=== PATIENT | male | born 1960 | race Caucasian/White ===

== ENCOUNTER → 2016-07-18 | Outpatient (CLI) | payer OTHER, MEDICARE ==
[~2016-07-18] MED LIST: DIAZ5TAB4 PO; HYDR-2762 PO; IOHEXOL 180 MG/ML 10 ML VIAL. ONE; MELO15TA23 PO; methylPREDNISolone ACETATE 40 MG/ML VIAL. ONE; methylPREDNISolone ACETATE 80 MG/ML VIAL. ONE
--- NOTE | 2016-07-19 07:11 | PAIN ---
DATE OF SERVICE: 07/18/2016 INITIAL CONSULTATION CHIEF COMPLAINT: Neck and bilateral upper extremity pain. HISTORY OF PRESENT ILLNESS: This is a 56-year-old male who presents with history of pain for about 10 years, worse over the past 6 months to a year. The patient reports it is increased with activity, lifting items, using his upper back or shoulder, sitting for prolonged periods, driving a car. The patient reports it is constant, shooting, radiating, numbness and tingling in the bilateral shoulders and upper extremities with numbness in the left hand, more noticeable than the right. The patient reports no specific injury or accident that he is aware of. He states it has gradually gotten worse. He does have a history of some arthritis. The patient has difficulty with it awakening him from sleep at night, he has to reposition and change positions. It does not affect his bowel or bladder control, but it does affect his ability to walk, as he has some low back pain as well and he is using a cane mostly in his right hand, but he only uses it when absolutely necessary, does not have with him today. The patient reports he has had no other physical therapies at this time, no formal treatments. He did have some chiropractic work in the past, which was not successful. The patient reports that he had some epidural injections in 2006, which helped significantly in both his neck and his low back. The patient has been taking Meloxicam as well as hydrocodone, both of which helped, but only by about 50% at the most with the hydrocodone and about 10% with the Meloxicam. The patient reports no loss of motor function but significant fatigability especially with repetitive use of the upper extremities, especially when driving. The patient reports his disability rating from 0-10, 10 being the worst, as a 7 with family and home responsibilities and recreation, 5 with sexual behavior and 0 with self-care and life support activities. The patient did have MRI scan of the lumbar spine, showing multiple levels of disk degeneration with the greatest at the L5-S1 with broad-based disk bulging extending into the right neural foramen contributing to moderately severe right foraminal stenosis. PAST MEDICAL HISTORY: Significant for arthritis, coronary artery disease, cigarette smoking, lung cancer in 2012. PAST SURGICAL HISTORY: Previous surgeries include appendectomy and lobectomy in 2012 as well. CURRENT MEDICATIONS: Include diazepam, hydrocodone, and Meloxicam. ALLERGIES: THE PATIENT IS ALLERGIC TO LYRICA. FAMILY HISTORY: Significant for heart disease and rheumatoid arthritis. SOCIAL HISTORY: The patient does not drink. He smokes one pack of cigarettes a day for 43 years. He is and lives with his spouse and one grandchild, lives locally in [place], [place]. REVIEW OF SYSTEMS: The patient's review of systems is positive for those items mentioned in the history of present illness. All systems reviewed and otherwise negative. It is complete, full and well documented on the patient's chart. PHYSICAL EXAMINATION: VITAL SIGNS: Today, the patient's blood pressure is 124/77, pulse 76, respirations 16, temperature is 98.2 degrees Fahrenheit, height is 5 feet 10 inches, weight is 151 pounds. GENERAL: The patient is awake, alert, oriented, appropriate, very pleasant demeanor. HEENT: Shows normocephalic and atraumatic. Extraocular movements are intact and symmetrical. Oral cavity shows mucous membranes are moist and pink. Dentition is intact. NECK: Shows anterior throat supple without palpable lymphadenopathy noted. Swallow reflex is symmetrical. CHEST: Shows normal on inspection. Breath sounds are clear to auscultation bilaterally. HEART: Shows S1 and S2 clear. ABDOMEN: Soft, nontender, nondistended. No palpable organomegaly. No rebound or guarding demonstrated. BACK: Shows spine grossly in the midline. Normal-appearing thoracic kyphosis and lumbar lordotic curvature. No previous bruises, lesions, rashes or scars are noted. Lumbar paraspinous musculature shows some moderate tenderness to palpation throughout the upper, middle and lower distribution, but has normal muscle girth. No tenderness over the sacrum, sacroiliac regions or over the spinous processes. The patient's lumbar spine shows good rotational motion both laterally as well as extension and flexion. Neck shows normal-appearing cervical lordotic curvature and shows good rotational motion both laterally greater than 45 degrees as well as extension greater than 10 degrees, forward flexion at 45 degrees with good rotation laterally past 45 degrees right and left with some minor pain reported with far left lateral rotation, but only in the base of the neck. Musculature is symmetrical and firm, but without specific atrophy or hypertrophy and without any radiation. EXTREMITIES: Upper extremities show deep tendon reflexes at 2+ in the biceps and triceps tendons. Motor exam is strong with factory expert strength rated at 5/5 as is biceps and triceps flexion. Peripheral pulses are 1+ in the radial distribution bilaterally. No peripheral edema is noted. No clubbing. No cyanosis. Upper extremities are warm and dry to touch, equal in color and appearance. Lower extremities showed deep tendon reflexes 1+ in the patellar and tendo calcaneus tendons. Motor exam is 5/5 with dorsiflexion, extension, quadriceps and hamstring flexion and symmetrical. IMPRESSION: 1. This is a 56-year-old male with long history of both upper back and shoulder and neck pain as well as low back pain. 2. MRI scan of the lumbar spine as noted. 3. Cigarette smoking. 4. Arthritis. 5. History of colon cancer. PLAN: Options were discussed with the patient including conservative medical management, physical therapy, interventional technique. He would like to pursue with interventional techniques. We discussed the cervical epidural steroid injection using description as well as anatomical models to describe the procedure. Risks were then discussed including but not limited to bleeding, infection, possibility of epidural hematoma and subsequent neurological compromise, dural puncture, headaches, spinal cord and/or nerve damage, side effects of steroid medication and poor results regarding pain control. The patient understands and wished to proceed. The patient will return to the clinic in approximately 2 weeks for followup. He was counseled on his return appointment, activity level and side effects to be aware of. DIAGNOSIS: Cervical radiculopathy with cervical degenerative disk disease and cervical spondylosis. PROCEDURE: Cervical epidural steroid injection using C-arm fluoroscopic guidance under sterile prep and drape using local anesthetic. MEDICATIONS INJECTED: Depo-Medrol 120 mg plus 5 mL of preservative-free normal saline and 2 mL of Isovue for contrast. CONDITION AT DISCHARGE: Stable. The patient tolerated the procedure well, had no complications. CONCHIS BAY MD DR: ASHOK/domiinc JOB#: [id number] / [id number] VALENTINO Dey MD
== END | disposition home or self-care (01) ==
LOC: PNCL 08:32
PROVIDERS: ATTEND Anesthesiology
DX: M50.10 Cervical disc disorder with radiculopathy, unspecified cervical region (principal); M47.22 Other spondylosis with radiculopathy, cervical region; M19.90 Unspecified osteoarthritis, unspecified site; F17.210 Nicotine dependence, cigarettes, uncomplicated; I25.10 Atherosclerotic heart disease of native coronary artery without angina pectoris; Z85.038 Personal history of other malignant neoplasm of large intestine; Z85.118 Personal history of other malignant neoplasm of bronchus and lung; Z88.8 Allergy status to other drugs, medicaments and biological substances
CPT/HCPCS: 62321; J1030; J1040

== ENCOUNTER → 2016-08-01 | Outpatient (CLI) | payer OTHER, MEDICARE ==
--- NOTE | 2016-08-02 05:00 | PAIN ---
DATE OF SERVICE: 08/01/2016 DIAGNOSES: 1. Lumbar radiculopathy with lumbar degenerative disk disease. 2. Cervical radiculopathy with cervical degenerative disk disease and cervical spondylosis. HISTORY OF PRESENT ILLNESS: The patient is a 56-year-old male who returns for followup status post cervical epidural steroid injection x 1 with about 75% improvement. The patient reports he is doing much better with his neck and shoulders. He is still with occasional headache, but very minimal. The patient reports pain is really not bothering him much at all. His main complaint is low back and right lower extremity pain. He has some significant radicular pain in the right lower extremity in the low back, right posterior gluteus, posterior lateral thigh, lateral anterior thigh, posterior and lateral lower leg to the ankle. The patient reports it is aching, tight, shooting, burning, unbearable at times, severe at times, worse with standing, walking, changing positions. The patient reports it is an 8 on a scale of 10 at its worst and a 4 on a scale of 10 at least, averages about a 6 on a scale of 10 most days and that is what it is today. The patient reports no new motor or sensory deficits, no new bowel or bladder incontinence or other complaints, but still significant pain in the low back and right leg. The patient did have MRI scan of the lumbar spine on 06/06/2016, showing multiple levels of disk degeneration greatest at L5-S1, broad-based posterior disk bulging extending into the right neural foraminal, contributing to moderately severe right foraminal stenosis as well as disk bulging into both neural foramina at L4-L5 as well. The patient reports no other changes. No other problems. PHYSICAL EXAMINATION: VITAL SIGNS: Today, the patient's blood pressure is 138/74, pulse 70, respirations 18, temperature 97.9 degrees Fahrenheit. Height is 5 feet 10 inches, weight is 156 pounds. GENERAL: The patient is awake, alert, oriented, appropriate, very pleasant demeanor. HEENT: Shows normocephalic and atraumatic. Extraocular movements are intact and symmetrical. Oral cavity shows mucous membranes are moist and pink. Dentition is intact. NECK: Shows anterior throat supple without palpable lymphadenopathy noted. Swallow reflex is symmetrical. CHEST: Shows normal on inspection. Breath sounds are clear to auscultation bilaterally. HEART: Shows S1 and S2 clear. ABDOMEN: Soft, nontender, nondistended. No palpable organomegaly is noted. No rebound or guarding demonstrated. BACK: The patient's back shows spine grossly in the midline. Cervical paraspinous musculature shows very minimal tenderness with palpation and good rotational motion past 45 degrees, right and left lateral, also full extension and full forward flexion without pain reported. Lower back shows some moderate tenderness with palpation in the lower lumbar distribution, more on the right than the left, but appears symmetrical. No atrophy or hypertrophy. No radiation of pain. The patient shows good rotational motion both laterally as well as extension and flexion without difficulty. EXTREMITIES: Lower extremities showed deep tendon reflexes 1+ in the patellar and tendo calcaneus tendons. Motor exam is strong with 5/5 dorsiflexion, extension, quadriceps and hamstring flexion. Upper extremities showed deep tendon reflexes 2+ in the biceps and triceps tendons. Motor exam is strong with assistant designer strength, biceps and triceps flexion is 5/5. PLAN: Options were discussed with the patient and the patient's old chart was reviewed as his current medication regimen and updated. Current review of systems updated today as well. We will preauthorize the patient for a lumbar epidural steroid injection as he has some significant radicular pain across the low back after good response to his cervical injection. His back is his main complaint now. Again, radicular pain in the right lower extremity with MRI scan as noted with broad-based posterior disk bulging at L4-L5 as well as L5-S1 with moderately severe right foraminal narrowing on the L5-S1 level. The patient was given Medrol Dosepak with instructions and side effects to be aware of. We will have him try this first and wait for preauthorization and proceed with a lumbar epidural steroid injection once that is obtained. CONCHIS BAY MD DR: ASHOK/dominic JOB#: [id number] / [id number]
== END | disposition home or self-care (01) ==
LOC: PNCL 10:03
PROVIDERS: ATTEND Anesthesiology
DX: M51.16 Intervertebral disc disorders with radiculopathy, lumbar region (principal); M50.10 Cervical disc disorder with radiculopathy, unspecified cervical region; M47.892 Other spondylosis, cervical region
CPT/HCPCS: 99212; J1030; J1040

== ENCOUNTER → 2016-08-15 | Outpatient (CLI) | payer MEDICARE, OTHER | END | disposition home or self-care (01) | LOC: PNCL 10:36 | PROVIDERS: ATTEND Anesthesiology | DX: M51.36 Other intervertebral disc degeneration, lumbar region (principal); M47.816 Spondylosis without myelopathy or radiculopathy, lumbar region; Z88.6 Allergy status to analgesic agent | CPT/HCPCS: 62323; J1030; J1040 ==